=== PATIENT | male | born 1950 | race Caucasian/White ===

== ENCOUNTER 2021-12-10 10:00 | Inpatient (IN) | payer MEDICARE, OTHER ==
[~2021-12-10] VITALS: Ht 180.3 cm; Wt 91.0 kg
[2021-12-10 11:26] LABS: Basophils # (auto) 0 10 ^3/uL (0-0.2); Basophils % (auto) 0.4 % (0.0-2.0); Eosinophils # (auto) 0.1 10 ^3/uL (0-0.8); Eosinophils % (auto) 1.2 % (0.0-7.0); Hematocrit 45.5 % (41.0-53.0); Lymphocytes # (auto) 0.8 10 ^3/uL (0.4-5.4); Lymphocytes % (auto) 9.3 % (10.0-50.0); Mean Corpuscular Hgb Conc. 33.1 g/dL (32.0-36.0); Mean Corpuscular Volume 87.6 fL (80.0-100.0); Monocytes # (auto) 0.6 10 ^3/uL (0-1.3); Monocytes % (auto) 6.5 % (0.0-12.0); Neutrophils # (auto) 7.4 10 ^3/uL (1.6-8.6); Neutrophils % (auto) 82.6 % (37.0-80.0); Nucleated Red Blood Cells % 0.1 %; Red Blood Cells 5.19 10^6/uL (4.5-5.90); Red Cell Distribution Width 13.2 % (11.8-14.3)
[2021-12-10 11:43] LABS: Albumin 3.6 g/dL (3.4-5.0); BUN/Creatinine Ratio 9.6; Calcium 8.9 mg/dL (8.5-10.1); Potassium 3.9 mmol/L (3.5-5.1)
[2021-12-10 11:56] LABS: Bilirubin, Total 3.4 mg/dL (0.2-1.0); Total Protein 6.7 g/dL (6.4-8.2)
[2021-12-10] MEDS ORDERED: HYDROcodone-ACET 5/325MG TAB PO ONE (12:00)
[2021-12-10 13:22] LABS: Urine Bacteria NONE SEEN /hpf (None Seen); Urine Blood Negative /uL (Negative); Urine Specific Gravity 1.016 (1.001-1.035); Urine WBC 1 /hpf (0 - 3)
[2021-12-10] MEDS ORDERED: ONDANSETRON HCL 4 MG/2 ML VIAL IV ONE (14:00)
[2021-12-10] MEDS ORDERED: MORPHINE SULFATE INJ 2 MG/ml SYRG IV ONE (14:00)
[2021-12-10] MEDS ORDERED: HYDROcodone-ACET 5/325MG TAB PO PRN (16:45)
[2021-12-10] MEDS ORDERED: ACETAMINOPHEN 325 MG TAB PO PRN (16:45)
[2021-12-10] MEDS ORDERED: MANNITOL FTV 25% 12.5 GM/50 ML 50 ML IV ONE (18:15)
[2021-12-10 22:00] VITALS: BP 143/68
[2021-12-10 22:27] VITALS: BP 143/68
[2021-12-10] MEDS: SODIUM CHLORIDE 0.9% 1,000 ML IV SCH (22:39)
[2021-12-10] MEDS: MORPHINE SULFATE INJ 2 MG/ml SYRG IV PRN (22:41)
[2021-12-10] MEDS ORDERED: ONDA-155 PO (22:43)
[2021-12-10] MEDS ORDERED: PROP60CA34 PO (22:43)
[2021-12-10] MEDS ORDERED: TAMS0.4C36 PO (22:43)
[2021-12-10] MEDS ORDERED: ATOR20TA50 PO (22:43)
[2021-12-11 05:00] VITALS: BP 131/69
[2021-12-11 06:08] LABS: Basophils # (auto) 0 10 ^3/uL (0-0.2); Basophils % (auto) 0.4 % (0.0-2.0); Eosinophils # (auto) 0.2 10 ^3/uL (0-0.8); Hematocrit 43.2 % (41.0-53.0); Hemoglobin 14.9 g/dL (13.5-17.5); Lymphocytes # (auto) 1.2 10 ^3/uL (0.4-5.4); Lymphocytes % (auto) 15.6 % (10.0-50.0); Mean Corpuscular Hemoglobin 30.3 pg (28.0-32.0); Mean Corpuscular Hgb Conc. 34.5 g/dL (32.0-36.0); Mean Corpuscular Volume 87.9 fL (80.0-100.0); Monocytes # (auto) 0.5 10 ^3/uL (0-1.3); Neutrophils # (auto) 5.8 10 ^3/uL (1.6-8.6); Nucleated Red Blood Cells % 0.1 %; Red Blood Cells 4.91 10^6/uL (4.5-5.90); Red Cell Distribution Width 13.1 % (11.8-14.3); White Blood Cell 7.7 10^3/uL (4.4-10.8)
[2021-12-11] MEDS: MORPHINE SULFATE INJ 2 MG/ml SYRG IV PRN ×2 (08:12→22:03)
[2021-12-11 08:57] LABS: Albumin 3.2 g/dL (3.4-5.0); Calcium 8.6 mg/dL (8.5-10.1); Potassium 3.8 mmol/L (3.5-5.1)
[2021-12-11 09:00] VITALS: BP 111/51
[2021-12-11 09:01] LABS: BUN/Creatinine Ratio 9.9; Bilirubin, Total 3.4 mg/dL (0.2-1.0); Total Protein 6.3 g/dL (6.4-8.2)
[2021-12-11] MEDS: SODIUM CHLORIDE 0.9% 1,000 ML IV SCH (09:25)
[2021-12-11] MEDS ORDERED: ENOXAPARIN SOD 30 MG/0.3 ML SYRINGE SC SCH (10:00)
[2021-12-11] MEDS: ENOXAPARIN SOD 40 MG/0.4 ML SYRINGE SC SCH (10:43)
[2021-12-11] MEDS: NIFEdipine ER 30 MG TAB PO SCH (10:44)
[2021-12-11 12:37] VITALS: BP 134/74
[2021-12-11] MEDS ORDERED: cefTRIAXone 1GM/50ML D5W 50 ML IV ONE (16:00)
[2021-12-11 16:58] VITALS: BP 117/78
[2021-12-11] MEDS: TAMSULOSIN HYDROCHLORIDE 0.4 MG CAP PO SCH (18:10)
[2021-12-11 22:00] VITALS: BP 136/66
[2021-12-12 05:00] VITALS: BP 111/71
[2021-12-12 06:41] LABS: INR 1.05 (0.9-1.15); Partial Thromboplastin Time 25.8 sec (23.6-33.0)
[2021-12-12 07:00] LABS: Albumin 3.3 g/dL (3.4-5.0); BUN/Creatinine Ratio 15.5; Calcium 8.7 mg/dL (8.5-10.1); Potassium 3.7 mmol/L (3.5-5.1)
[2021-12-12 07:09] LABS: Bilirubin, Total 2.4 mg/dL (0.2-1.0); Total Protein 6.3 g/dL (6.4-8.2)
[2021-12-12 09:08] VITALS: BP 110/56
[2021-12-12] MEDS: cefTRIAXone 1GM/50ML D5W 50 ML IV SCH (09:17)
[2021-12-12] MEDS: NIFEdipine ER 30 MG TAB PO SCH (09:18)
[2021-12-12] MEDS: ENOXAPARIN SOD 40 MG/0.4 ML SYRINGE SC SCH (09:18)
[2021-12-12] MEDS: SODIUM CHLORIDE 0.9% 1,000 ML IV SCH (12:51)
[2021-12-12 13:00] VITALS: BP 140/81
[2021-12-12 16:54] VITALS: BP 120/70
[2021-12-12] MEDS: TAMSULOSIN HYDROCHLORIDE 0.4 MG CAP PO SCH (17:31)
[2021-12-12 22:00] VITALS: BP 123/76
[2021-12-13 05:00] VITALS: BP 113/48
[2021-12-13 08:01] VITALS: BP 123/66
[2021-12-13] MEDS: SODIUM CHLORIDE 0.9% 1,000 ML IV SCH ×2 (08:44→11:25)
[2021-12-13] MEDS: cefTRIAXone 1GM/50ML D5W 50 ML IV SCH (09:11)
[2021-12-13] MEDS: NIFEdipine ER 30 MG TAB PO SCH (09:12)
[2021-12-13] MEDS: ENOXAPARIN SOD 40 MG/0.4 ML SYRINGE SC SCH (09:12)
[2021-12-13 12:28] VITALS: BP 127/64
[2021-12-13] MEDS ORDERED: TAMS0.4C36 PO (13:52)
== END 2021-12-13 16:01 | disposition home or self-care (01) | DRG 694 ==
LOC: ER 10:00 → EDBD 10:00 → OVERFLOW 16:40 → WEST WING 21:30
PROVIDERS: ADMIT Internal Medicine; ATTEND Internal Medicine
DX: N13.2 Hydronephrosis with renal and ureteral calculous obstruction (principal); N17.9 Acute kidney failure, unspecified; I12.9 Hypertensive chronic kidney disease with stage 1 through stage 4 chronic kidney disease, or unspecified chronic kidney disease; N18.9 Chronic kidney disease, unspecified; Z20.822 Contact with and (suspected) exposure to COVID-19; Z90.49 Acquired absence of other specified parts of digestive tract; Z83.3 Family history of diabetes mellitus; Z82.49 Family history of ischemic heart disease and other diseases of the circulatory system
CPT/HCPCS: 36415; 71045; 74176; 76705; 80053; 81001; 83036; 83690; 84443; 84484; 85025; 85610; 85730; 93005; 96361; 96374; 96375; G0378; J0696; J2405

== ENCOUNTER 2021-12-16 16:18 | Inpatient (IN) | payer OTHER ==
[~2021-12-16] VITALS: Ht 182.9 cm; Wt 121.6 kg
[~2021-12-16 16:18] MED LIST: ATOR20TA50 PO; ONDA-155 PO; PROP60CA34 PO; TAMS0.4C36 PO
[2021-12-16] MEDS ORDERED: ONDANSETRON HCL 4 MG/2 ML VIAL IV PRN (17:00)
[2021-12-16] MEDS ORDERED: MORPHINE SULFATE INJ 2 MG/ml SYRG IV PRN (17:00)
[2021-12-16] MEDS ORDERED: NITROGLYCERIN 0.4 MG SL TAB SL PRN (17:00)
[2021-12-16] MEDS ORDERED: DOCUSATE SOD 100 MG CAP PO PRN (17:00)
[2021-12-16] MEDS: LACTATED RINGER'S 1,000 ML IV SCH (17:59)
[2021-12-16] MEDS: TAMSULOSIN HYDROCHLORIDE 0.4 MG CAP PO SCH (17:59)
[2021-12-16 18:20] VITALS: BP 130/60
[2021-12-16 18:28] LABS: Basophils # (auto) 0.1 10 ^3/uL (0-0.2); Basophils % (auto) 1.2 % (0.0-2.0); Eosinophils # (auto) 0.5 10 ^3/uL (0-0.8); Eosinophils % (auto) 5.5 % (0.0-7.0); Hematocrit 45.6 % (41.0-53.0); Lymphocytes # (auto) 1.8 10 ^3/uL (0.4-5.4); Lymphocytes % (auto) 20.1 % (10.0-50.0); Mean Corpuscular Hemoglobin 29.2 pg (28.0-32.0); Mean Corpuscular Hgb Conc. 32.8 g/dL (32.0-36.0); Monocytes # (auto) 0.6 10 ^3/uL (0-1.3); Monocytes % (auto) 6.3 % (0.0-12.0); Neutrophils # (auto) 5.9 10 ^3/uL (1.6-8.6); Neutrophils % (auto) 66.9 % (37.0-80.0); Nucleated Red Blood Cells % 0.1 %; Red Blood Cells 5.13 10^6/uL (4.5-5.90); Red Cell Distribution Width 13.3 % (11.8-14.3); White Blood Cell 8.9 10^3/uL (4.4-10.8)
[2021-12-16 18:39] LABS: Albumin 3.7 g/dL (3.4-5.0); BUN/Creatinine Ratio 15.7; Bilirubin, Direct 0.2 mg/dL (0-0.2); Calcium 9.2 mg/dL (8.5-10.1); Potassium 4.1 mmol/L (3.5-5.1)
[2021-12-16 18:49] LABS: Total Protein 7.1 g/dL (6.4-8.2)
[2021-12-16 20:33] LABS: Urine Amorphous Crystal FEW /hpf (None Seen); Urine Bacteria FEW /hpf (None Seen); Urine Blood Negative /uL (Negative); Urine Mucus FEW (None Seen); Urine Specific Gravity 1.021 (1.001-1.035); Urine WBC 2 /hpf (0 - 3)
[2021-12-16] MEDS ORDERED: MANNITOL FTV 25% 12.5 GM/50 ML 50 ML IV ONE (21:00)
[2021-12-16 22:00] VITALS: BP 118/55
[2021-12-17] MEDS: LACTATED RINGER'S 1,000 ML IV SCH ×4 (01:04→23:31)
[2021-12-17 05:06] VITALS: BP 113/50
[2021-12-17 06:04] LABS: BUN/Creatinine Ratio 16.7; Calcium 8.6 mg/dL (8.5-10.1); Potassium 3.9 mmol/L (3.5-5.1)
[2021-12-17 09:00] VITALS: BP 127/64
[2021-12-17] MEDS ORDERED: IOHEXOL 300 MG/ML 100ML BOTTLE IJ ONE (12:11)
[2021-12-17 13:00] VITALS: BP 127/64
[2021-12-17] MEDS ORDERED: levoFLOXacin 500MG 100 ML IV ONE (14:00)
[2021-12-17] MEDS ORDERED: MANNITOL FTV 25% 12.5 GM/50 ML 50 ML IV ONE (15:15)
[2021-12-17] MEDS: TAMSULOSIN HYDROCHLORIDE 0.4 MG CAP PO SCH (18:09)
[2021-12-17 20:43] LABS: Basophils # (auto) 0.1 10 ^3/uL (0-0.2); Basophils % (auto) 0.9 % (0.0-2.0); Eosinophils # (auto) 0.3 10 ^3/uL (0-0.8); Eosinophils % (auto) 4.7 % (0.0-7.0); Hemoglobin 14.3 g/dL (13.5-17.5); Lymphocytes # (auto) 1.6 10 ^3/uL (0.4-5.4); Lymphocytes % (auto) 22.7 % (10.0-50.0); Mean Corpuscular Hemoglobin 29.2 pg (28.0-32.0); Mean Corpuscular Hgb Conc. 33.3 g/dL (32.0-36.0); Mean Corpuscular Volume 87.6 fL (80.0-100.0); Monocytes # (auto) 0.4 10 ^3/uL (0-1.3); Monocytes % (auto) 6.1 % (0.0-12.0); Neutrophils # (auto) 4.6 10 ^3/uL (1.6-8.6); Neutrophils % (auto) 65.6 % (37.0-80.0); Red Blood Cells 4.91 10^6/uL (4.5-5.90); Red Cell Distribution Width 13.2 % (11.8-14.3)
[2021-12-17 20:54] LABS: Albumin 3.3 g/dL (3.4-5.0); BUN/Creatinine Ratio 14.3; Calcium 8.7 mg/dL (8.5-10.1); Potassium 3.9 mmol/L (3.5-5.1)
[2021-12-17 20:56] LABS: Bilirubin, Total 1.2 mg/dL (0.2-1.0); Total Protein 6.4 g/dL (6.4-8.2)
[2021-12-17 21:15] LABS: INR 1.03 (0.9-1.15); Partial Thromboplastin Time 26.5 sec (24.6-33.4)
[2021-12-17 22:00] VITALS: BP 139/64
[2021-12-18 05:00] VITALS: BP 127/49
[2021-12-18] MEDS: LACTATED RINGER'S 1,000 ML IV SCH ×2 (09:00→17:00)
[2021-12-18 09:29] VITALS: BP 128/58
[2021-12-18] MEDS: levoFLOXacin 500MG 100 ML IV SCH (09:52)
[2021-12-18] MEDS ORDERED: ceFAZolin 1GM/50ML 100 ML IV ONE (12:43)
[2021-12-18] MEDS ORDERED: SUCCINYLCHOLINE CHLORIDE 20 MG/ML 10ML VIAL IV ONE (12:47)
[2021-12-18] MEDS ORDERED: PHENYLEPHRINE HCL 10 MG/ML VL IV ONE (12:47)
[2021-12-18 13:00] VITALS: BP 129/78
[2021-12-18] MEDS ORDERED: MIDAZOLAM HCL 2MG/2ML 2ml VIAL (1mg/ml) ONE (14:34)
[2021-12-18] MEDS ORDERED: MEPERIDINE HCL (50 MG/ML) 1 ML VIAL ONE (14:34)
[2021-12-18] MEDS ORDERED: fentaNYL CITRATE 100 MCG/2 ML VL ONE (14:34)
[2021-12-18] MEDS ORDERED: MORPHINE SULFATE 4 MG/ML SYR/VIAL IV PRN (15:00)
[2021-12-18] MEDS ORDERED: LABETALOL HCL 5 MG/ML 4ML SYRINGE IV PRN (15:00)
[2021-12-18] MEDS ORDERED: ONDANSETRON HCL 4 MG/2 ML VIAL IV PRN (15:00)
[2021-12-18] MEDS ORDERED: ePHEDrine SULFATE 50 MG/ML AMP IV PRN (15:00)
[2021-12-18] MEDS ORDERED: HYDROmorphone HCL 2 MG/ML VL/or syr IV PRN (15:00)
[2021-12-18] MEDS ORDERED: MIDAZOLAM HCL 2MG/2ML 2ml VIAL (1mg/ml) IV PRN (15:00)
[2021-12-18] MEDS ORDERED: DexAMETHasone SOD PHOS 10MG/1ML VIAL INJ ONE (15:03)
[2021-12-18] MEDS ORDERED: IOHEXOL 300 MG/ML 100ML BOTTLE IJ ONE (15:09)
[2021-12-18] MEDS ORDERED: PROPOFOL 10 MG/ML 20 ML IV ONE (15:14)
[2021-12-18 16:22] VITALS: BP 131/84
[2021-12-18] MEDS: TAMSULOSIN HYDROCHLORIDE 0.4 MG CAP PO SCH (16:47)
[2021-12-18] MEDS: MORPHINE SULFATE INJ 2 MG/ml SYRG IV PRN ×2 (18:15→22:11)
[2021-12-18] MEDS: HYDROcodone-ACET 5/325MG TAB PO PRN ×2 (18:42→23:35)
[2021-12-18] MEDS ORDERED: MORPHINE SULFATE INJ 2 MG/ml SYRG IV ONE (21:00)
[2021-12-18 22:00] VITALS: BP 159/55
[2021-12-19] MEDS: MORPHINE SULFATE INJ 2 MG/ml SYRG IV PRN ×2 (02:01→06:03)
[2021-12-19] MEDS: LACTATED RINGER'S 1,000 ML IV SCH ×2 (02:04→09:14)
[2021-12-19] MEDS: HYDROcodone-ACET 5/325MG TAB PO PRN ×2 (03:43→07:46)
[2021-12-19 05:00] VITALS: BP 133/53
[2021-12-19] MEDS: levoFLOXacin 500MG 100 ML IV SCH (07:46)
[2021-12-19 08:00] VITALS: BP 133/53
[2021-12-19 09:00] VITALS: BP 133/53
[2021-12-19] MEDS ORDERED: KETOROLAC TROMETH 30 MG/ML 1ML VIAL IV PRN (09:45)
[2021-12-19] MEDS ORDERED: LEVO500T31 PO (10:34)
[2021-12-19 11:19] VITALS: BP 133/53
== END 2021-12-19 12:48 | disposition home or self-care (01) | DRG 661 ==
LOC: CENTRAL 16:40
PROVIDERS: ADMIT Internal Medicine; ATTEND Internal Medicine
PROC: 0T778DZ Dilation of Left Ureter with Intraluminal Device, Via Natural or Artificial Opening Endoscopic (ICD-10-PCS; 2021-12-18)
PROC: 0TC78ZZ Extirpation of Matter from Left Ureter, Via Natural or Artificial Opening Endoscopic (ICD-10-PCS; 2021-12-18)
PROC: BT1F1ZZ Fluoroscopy of Left Kidney, Ureter and Bladder using Low Osmolar Contrast (ICD-10-PCS; principal; 2021-12-18 14:39)
DX: N13.2 Hydronephrosis with renal and ureteral calculous obstruction (principal); I10 Essential (primary) hypertension; Z20.822 Contact with and (suspected) exposure to COVID-19; Z82.49 Family history of ischemic heart disease and other diseases of the circulatory system; Z83.3 Family history of diabetes mellitus; Z87.442 Personal history of urinary calculi
CPT/HCPCS: 36415; 71045; 74018; 74178; 74181; 76000; 76775; 80048; 80053; 81001; 82248; 84154; 85025; 85610; 85730; 86850; 86900; 86901; 87081; G0378; J0330; J0690; J1100; J1956; J2250; J2704

== ENCOUNTER 2022-02-23 13:00 | Inpatient (IN) | payer OTHER, MEDICARE ==
[~2022-02-23] VITALS: Ht 182.9 cm; Wt 117.1 kg
[~2022-02-23 13:00] MED LIST changes: +LEVO500T31 PO
[2022-02-23 13:22] VITALS: BP 149/62
[2022-02-23] MEDS ORDERED: MULT-1058 PO (14:08)
[2022-02-23] MEDS ORDERED: TEMAZEPAM 15 MG CAP PO PRN (14:15)
[2022-02-23] MEDS ORDERED: HYDROmorphone HCL 2 MG/ML VL/or syr IV PRN (14:15)
[2022-02-23] MEDS ORDERED: HYDROcodone-ACET 5/325MG TAB PO PRN (14:15)
[2022-02-23] MEDS ORDERED: ACETAMINOPHEN 325 MG TAB PO PRN (14:15)
[2022-02-23] MEDS ORDERED: cefTRIAXone 1GM/50ML D5W 50 ML IV ONE (14:15)
[2022-02-23] MEDS: SODIUM CHLORIDE 0.9% 1,000 ML IV SCH (14:50)
[2022-02-23 16:26] LABS: Basophils # (auto) 0.1 10 ^3/uL (0-0.2); Basophils % (auto) 0.9 % (0.0-2.0); Eosinophils # (auto) 0.3 10 ^3/uL (0-0.8); Eosinophils % (auto) 3.6 % (0.0-7.0); Hematocrit 43.3 % (41.0-53.0); Hemoglobin 14.5 g/dL (13.5-17.5); Lymphocytes # (auto) 1.7 10 ^3/uL (0.4-5.4); Lymphocytes % (auto) 21.1 % (10.0-50.0); Mean Corpuscular Hemoglobin 29.2 pg (28.0-32.0); Mean Corpuscular Hgb Conc. 33.4 g/dL (32.0-36.0); Mean Corpuscular Volume 87.4 fL (80.0-100.0); Monocytes # (auto) 0.5 10 ^3/uL (0-1.3); Monocytes % (auto) 6.1 % (0.0-12.0); Neutrophils # (auto) 5.5 10 ^3/uL (1.6-8.6); Neutrophils % (auto) 68.3 % (37.0-80.0); Nucleated Red Blood Cells % 0.4 %; Red Blood Cells 4.96 10^6/uL (4.5-5.90); Red Cell Distribution Width 13.3 % (11.8-14.3); White Blood Cell 8.1 10^3/uL (4.4-10.8)
[2022-02-23 16:41] LABS: Albumin 3.6 g/dL (3.4-5.0); BUN/Creatinine Ratio 13.7; Calcium 8.6 mg/dL (8.5-10.1); Potassium 4.1 mmol/L (3.5-5.1)
[2022-02-23 16:42] VITALS: BP 146/69
[2022-02-23 16:43] LABS: Bilirubin, Total 1.5 mg/dL (0.2-1.0); Total Protein 6.6 g/dL (6.4-8.2)
[2022-02-23 16:45] LABS: Partial Thromboplastin Time 24.8 sec (24.6-33.4)
[2022-02-23 17:26] LABS: Urine Bacteria FEW /hpf (None Seen); Urine Blood 3+ /uL (Negative); Urine Mucus FEW (None Seen); Urine Specific Gravity 1.019 (1.001-1.035); Urine WBC 108 /hpf (0 - 3)
[2022-02-23 22:52] VITALS: BP 120/56
[2022-02-24] MEDS: SODIUM CHLORIDE 0.9% 1,000 ML IV SCH ×2 (00:15→14:07)
[2022-02-24 06:02] VITALS: BP 122/58
[2022-02-24] MEDS: cefTRIAXone 1GM/50ML D5W 50 ML IV SCH (08:50)
[2022-02-24 09:00] VITALS: BP 135/58
[2022-02-24 12:46] VITALS: BP 123/76
[2022-02-24 16:38] VITALS: BP 144/73
[2022-02-24 22:00] VITALS: BP 120/57
[2022-02-25] MEDS: SODIUM CHLORIDE 0.9% 1,000 ML IV SCH ×4 (00:04→18:41)
[2022-02-25 05:00] VITALS: BP 144/61
[2022-02-25 08:16] VITALS: BP 130/61
[2022-02-25 09:21] VITALS: BP 130/61
[2022-02-25] MEDS: cefTRIAXone 1GM/50ML D5W 50 ML IV SCH (09:27)
[2022-02-25 12:16] VITALS: BP 125/67
[2022-02-25] MEDS ORDERED: IOHEXOL 300 MG/ML 100ML BOTTLE IJ ONE (14:30)
[2022-02-25] MEDS ORDERED: fentaNYL CITRATE 100 MCG/2 ML VL ONE (15:09)
[2022-02-25] MEDS ORDERED: MIDAZOLAM HCL 2MG/2ML 2ml VIAL (1mg/ml) ONE (15:09)
[2022-02-25] MEDS ORDERED: PROPOFOL 10 MG/ML 20 ML IV ONE (15:10)
[2022-02-25] MEDS ORDERED: KETAMINE HCL 10 ML ONE (15:10)
[2022-02-25] MEDS ORDERED: LIDOCAINE 2% (LOCAL ANESTH.) PF 5ml SDV ONE (15:10)
[2022-02-25] MEDS ORDERED: GLYCOPYRROLATE 0.2 MG/ML 1ML VIAL ONE (15:10)
[2022-02-25] MEDS ORDERED: ONDANSETRON HCL 4 MG/2 ML VIAL ONE (15:10)
[2022-02-25 16:44] VITALS: BP 121/47
[2022-02-25 21:43] VITALS: BP 135/66
[2022-02-26 05:00] VITALS: BP 137/74
[2022-02-26 08:00] VITALS: BP 147/76
[2022-02-26 09:00] VITALS: BP 147/76
[2022-02-26] MEDS: cefTRIAXone 1GM/50ML D5W 50 ML IV SCH (10:37)
[2022-02-26 13:00] VITALS: BP 141/79
[2022-02-26 14:02] VITALS: BP 140/76
== END 2022-02-26 14:55 | disposition home or self-care (01) | DRG 693 ==
LOC: CENTRAL 13:00
PROVIDERS: ADMIT Internal Medicine; ATTEND Internal Medicine
PROC: 0TP98DZ Removal of Intraluminal Device from Ureter, Via Natural or Artificial Opening Endoscopic (ICD-10-PCS; principal; 2022-02-25 17:10)
DX: N13.30 Unspecified hydronephrosis (principal); U07.1 COVID-19; E66.9 Obesity, unspecified; R73.03 Prediabetes; R31.0 Gross hematuria; I10 Essential (primary) hypertension; N17.9 Acute kidney failure, unspecified; Z83.3 Family history of diabetes mellitus; Z79.899 Other long term (current) drug therapy; Z82.49 Family history of ischemic heart disease and other diseases of the circulatory system; Z87.442 Personal history of urinary calculi; Z68.35 Body mass index [BMI] 35.0-35.9, adult
CPT/HCPCS: 36415; 71045; 74018; 76000; 76775; 80053; 81001; 83036; 85025; 85610; 85730; 86850; 86900; 86901; 87081; G0378; J0696; J2001; J2250; J2405; J2704

== ENCOUNTER 2022-02-28 09:51 | Emergency (ER) | payer MEDICARE, OTHER ==
[~2022-02-28] VITALS: Ht 182.9 cm; Wt 109.1 kg
[~2022-02-28 09:51] MED LIST changes: +MULT-1058 PO
[2022-02-28] MEDS ORDERED: BACDST PO (12:40)
[2022-02-28 12:59] VITALS: BP 153/85
== END 2022-02-28 12:58 | disposition home or self-care (01) ==
LOC: ER 09:51
DX: N17.9 Acute kidney failure, unspecified (principal); Z90.89 Acquired absence of other organs
CPT/HCPCS: 87086

== ENCOUNTER 2022-03-02 11:25 | Emergency (ER) | payer OTHER ==
[~2022-03-02] VITALS: Ht 182.9 cm; Wt 112.8 kg
[~2022-03-02 11:25] MED LIST changes: +BACDST PO
[2022-03-02 12:42] VITALS: BP 108/65
== END 2022-03-02 12:43 | disposition home or self-care (01) ==
LOC: ER 11:25
DX: R10.9 Unspecified abdominal pain (principal); Z90.89 Acquired absence of other organs; Z88.1 Allergy status to other antibiotic agents
CPT/HCPCS: 51702